=== PATIENT | male | born 1965 | race Caucasian/White ===

== ENCOUNTER 2020-10-09 13:25 | Emergency (ER) | payer MEDICAID ==
[~2020-10-09] VITALS: Ht 167.6 cm; Wt 90.7 kg
[2020-10-09 13:35] VITALS: BP_SYST 134
[2020-10-09] MEDS ORDERED: IBUPROFEN 800 MG TABLET PO ONE (14:30)
[2020-10-09 14:33] VITALS: BP_SYST 134
== END 2020-10-09 14:33 | disposition home or self-care (01) ==
LOC: SED 13:25
DX: S52.501A Unspecified fracture of the lower end of right radius, initial encounter for closed fracture (principal); W10.9XXA Fall (on) (from) unspecified stairs and steps, initial encounter; Y93.89 Activity, other specified; Y92.89 Other specified places as the place of occurrence of the external cause; Y99.8 Other external cause status
CPT/HCPCS: 99283